=== PATIENT | female | born 1955 | race Hispanic/Latino ===

== ENCOUNTER 2019-03-30 11:41 | Inpatient (IN) | payer BC ==
[2019-03-30 12:23] LABS: #Eosinphils 0.1 thou/uL (0.0-0.7); #Lymphocytes 2.2 thou/uL (1.20-3.40); #Monocytes 0.5 thou/uL (0.11-0.59); #Neutrophils 4.4 thou/uL (1.40-6.50); %Basophils 0.2 % (0.0-1.0); %Eosinophils 1.6 % (0.0-10.0); %Lymphocytes 30.6 % (21.0-51.0); %Monocytes 6.7 % (0.0-10.0); Hemoglobin 14.2 g/dL (12.0-16.0); Mean Corpuscular HGB CONC 34.7 g/dL (32.0-36.0); Mean Corpuscular Hemoglobin 32.7 pg (27.0-31.0); Mean Corpuscular Volume 94.4 fL (78.0-98.0); Mean Platelet Volume 8.6 fL (7.4-10.4); Platelet Count 205 thou/uL (130-400); RBC Distribution Width 11.9 % (11.5-14.5); Red Blood Cell (RBC) Count 4.33 mill/uL (4.20-5.40); White Blood Cell (WBC) Count 7.2 thou/uL (4.8-10.8)
--- NOTE | 2019-03-30 12:35 | RAD ---
PORTABLE CHEST ONE VIEW: 03/30/2019 12:21 p.m. HISTORY: Chest pain. Shortness of breath. COMPARISON: 08/02/2013 FINDINGS: The heart size is normal. The aorta is tortuous. The lungs are well expanded without focal areas of consolidation, pneumothoraces, or pleural effusions. There are postop changes of right rotator cuff repair. IMPRESSION: No acute process. POS: [place]
[2019-03-30] MEDS ORDERED: Aspirin Chewable 81 MG TAB ONE (12:39)
[2019-03-30 12:45] LABS: ALT (SGPT) 21 U/L (8-55); AST (SGOT) 16 U/L (5-34); Alkaline Phosphatase 112 U/L (40-150); Anion Gap 11 mmol/L (10-20); BUN (Urea Nitrogen) 13 mg/dL (9.8-20.1); Bilirubin, Total 0.5 mg/dL (0.2-1.2); Calc. Creatinine Clearance 0 mL/min (70-130); Calcium 8.8 mg/dL (7.8-10.44); Carbon Dioxide 24 mmol/L (23-31); Chloride 108 mmol/L (98-107); Estimated GFR-MDRD Greater than 90; Globulin 2.5 g/dL (2.4-3.5); Glucose 117 mg/dL (80-115); Potassium 4.2 mmol/L (3.5-5.1); Protein, Total 6.5 g/dL (6.0-8.3); Sodium 139 mmol/L (136-145)
[2019-03-30] MEDS ORDERED: Acetaminophen 500 MG TAB ONE (13:05)
[2019-03-30] MEDS ORDERED: Nitroglycerin 2% Ointment 1 INCH/1 GM Packet ONE (13:05)
[2019-03-30] MEDS ORDERED: Morphine 4 MG/ML VIAL ONE (13:35)
[2019-03-30] MEDS ORDERED: Ondansetron PF 4 MG/2 ML Vial ONE (13:35)
[2019-03-30] MEDS ORDERED: Ondansetron ODT 4 MG TAB SL PRN (14:33)
[2019-03-30] MEDS ORDERED: Ondansetron PF 4 MG/2 ML Vial IVP PRN (14:33)
[2019-03-30] MEDS ORDERED: Acetaminophen 325 MG TAB PO PRN (14:33)
[2019-03-30 15:49] LABS: Troponin I 0.609 ng/mL (< 0.028)
[2019-03-30 16:31] VITALS: BMI 35.6
[2019-03-30] MEDS ORDERED: Bisacodyl 5 MG TAB PO PRN (17:09)
[2019-03-30] MEDS ORDERED: HYDROcodone/Acetaminophen 5/325 mg Tablet PO PRN (17:09)
[2019-03-30] MEDS ORDERED: Senokot S 8.6-50 MG TAB PO PRN (17:09)
[2019-03-30] MEDS ORDERED: Morphine 2 MG/ML SYRINGE IVP PRN (17:12)
--- NOTE | 2019-03-30 18:28 | HP ---
CHIEF COMPLAINT: Chest pain. HISTORY OF PRESENT ILLNESS: Ms. Sena is a very pleasant 64-year-old female with no known past medical history, presents with acute onset of chest pain. The patient states that this morning she started having left-sided midsternal crushing type chest pain, that did radiate up to the jaw. The patient had associated numbness and tingling in the left arm. The patient states that she did have some shortness of breath and there was a crushing sensation to the chest. The patient denies history of cardiac disease. The patient has never had a heart attack. The patient has never had cardiac catheterization. The patient says that she did have a stress test roughly 3 years ago and it was normal. The patient is otherwise healthy and takes no medications. The patient denies history of diabetes. The patient denies history of hypertension. The patient with initially normal troponin level, on serial troponin tests, found to be up-trending. Cardiology consultation requested for further recommendations. The patient admitted to medical unit with telemetry for further management. PAST MEDICAL HISTORY: No known past medical history. REVIEW OF SYSTEMS: A 10-point review of systems was performed and negative aside from what mentioned in history of present illness. MEDICATIONS: Aspirin 81 mg one tablet p.o. daily. ALLERGIES: NO KNOWN DRUG ALLERGIES. SOCIAL HISTORY: The patient denies tobacco, illicit drug use, or alcohol. She wishes to be a full code. PHYSICAL EXAMINATION: VITAL SIGNS: Temperature 98.1, pulse 63, blood pressure 120/62, respirations 18, and O2 saturation 98% on room air. GENERAL: The patient is alert and oriented, in no acute distress. She is resting in bed comfortably, breathing well on room air. HEENT: Head is normocephalic and atraumatic. Pupils are equally round and reactive to light and accommodation. Extraocular muscles intact. There are no exudates on the tonsils or erythema present. CHEST: S1 and S2 present. No appreciated murmurs, rubs, or gallops. LUNGS: Clear to auscultation bilaterally without wheezing, rales, or rhonchi. ABDOMEN: Soft, nontender, and nondistended without focal guarding or rigidity. BACK: Spine in good alignment with normal range of motion. EXTREMITIES: Lower extremities; no lower extremity edema. NEUROLOGIC: Cranial nerves 2 through 12 are grossly intact. Strength and sensation are symmetric and intact. SKIN: No rashes or lesions. PSYCHIATRIC: The patient is alert and oriented x3 with good insight into clinical condition. LABORATORY DATA: WBC 7.2, RBC 4.3, hemoglobin 14.2, hematocrit 40.8, and platelets 205. D-dimer less than 0.27. Chemistry; sodium 139, potassium 4.2, chloride 108, carbon dioxide 24, anion gap of 11, BUN 13, creatinine 0.63, estimated GFR greater than 90, glucose 117, and calcium 8.8. Total bilirubin 0.5, AST 16, ALT 21, and alkaline phosphatase 112. Troponin 0.609. Serum total protein 6.5 and albumin 4.0. RADIOGRAPHIC IMAGING: Chest x-ray: Please see full report for details. IMPRESSION: No acute process. ASSESSMENT AND PLAN: 1. [id number] myocardial infarction - the patient with up-trending cardiac enzymes. EKG does not demonstrate any acute ST-T segment abnormalities. Continue to trend troponin values. Morphine, oxygen, nitrates, and aspirin have all been ordered. Cardiology consultation requested, recommendations appreciated. 2. Elevated troponins, treatment as above. 3. Chest pain, treatment as above. 4. Elevated BMI. 5. Add hemoglobin A1c and lipid panel to screen for medical comorbidities. Job ID: [id number]
[2019-03-30 18:50] LABS: Hemoglobin A1c 5.3 % (4.0-6.0)
[2019-03-30 19:04] LABS: Cardiac Risk 3.8 (Less than 4.5)
[2019-03-30 19:10] LABS: Troponin I 1.276 ng/mL (< 0.028)
[2019-03-30] MEDS: Nitroglycerin 0.4 MG TAB (25 Tab Bottle) SL PRN ×3 (19:14→20:05)
--- NOTE | 2019-03-30 19:23 | PDOC.EVN ---
Event Note - Event Note Event Note: Second troponin positive at >1. Will add Daily ASA, add lovenox, B Selena ACEI and statin. Cardiology consult tomorrow.
[2019-03-30] MEDS: Famotidine 20 MG TAB PO SCH (19:31)
[2019-03-30] MEDS: Enoxaparin Sodium 80 MG/0.8 ML SYRINGE SC SCH (20:05)
[2019-03-30] MEDS: Metoprolol Tartrate 25 MG TAB PO SCH (20:42)
[2019-03-30] MEDS: Atorvastatin Calcium 20 MG TAB PO SCH (20:42)
[2019-03-30] MEDS: Nitroglycerin 2% Ointment 1 INCH/1 GM Packet TOP SCH (21:42)
[2019-03-31] MEDS ORDERED: Ondansetron PF 4 MG/2 ML Vial IVP PRN (01:45)
[2019-03-31 05:34] LABS: #Lymphocytes 1.7 thou/uL (1.20-3.40); #Monocytes 0.5 thou/uL (0.11-0.59); #Neutrophils 7.4 thou/uL (1.40-6.50); %Basophils 0.2 % (0.0-1.0); %Eosinophils 0.5 % (0.0-10.0); %Lymphocytes 17.9 % (21.0-51.0); %Neutrophils 76.5 % (42.0-75.0); Hemoglobin 13.6 g/dL (12.0-16.0); Mean Corpuscular HGB CONC 34.4 g/dL (32.0-36.0); Mean Corpuscular Hemoglobin 32.8 pg (27.0-31.0); Mean Corpuscular Volume 95.4 fL (78.0-98.0); Mean Platelet Volume 8.9 fL (7.4-10.4); Platelet Count 211 thou/uL (130-400); RBC Distribution Width 11.9 % (11.5-14.5); Red Blood Cell (RBC) Count 4.15 mill/uL (4.20-5.40); White Blood Cell (WBC) Count 9.7 thou/uL (4.8-10.8)
[2019-03-31 06:00] LABS: Anion Gap 11 mmol/L (10-20); BUN (Urea Nitrogen) 12 mg/dL (9.8-20.1); Calc. Creatinine Clearance 126 mL/min (70-130); Carbon Dioxide 24 mmol/L (23-31); Chloride 106 mmol/L (98-107); Estimated GFR-MDRD Greater than 90; Glucose 118 mg/dL (80-115); Sodium 137 mmol/L (136-145)
[2019-03-31] MEDS: Nitroglycerin 2% Ointment 1 INCH/1 GM Packet TOP SCH ×2 (06:06→13:45)
[2019-03-31] MEDS: Enoxaparin Sodium 80 MG/0.8 ML SYRINGE SC SCH (09:36)
[2019-03-31] MEDS: Metoprolol Tartrate 25 MG TAB PO SCH (09:37)
[2019-03-31] MEDS: Famotidine 20 MG TAB PO SCH ×2 (09:37→20:42)
[2019-03-31] MEDS: Aspirin 81 mg Enteric Coated Tablet PO SCH (09:37)
--- NOTE | 2019-03-31 12:06 | PDOC.HOSPP ---
- Subjective Subjective: Seen and examined. Did have some chest pain in the night, improved with current medications. No chest pain currently. Breathing well on room air. NPO pending cardiology input. - Objective Vital Signs & Weight: Vital Signs (12 hours) Temp Pulse Resp BP Pulse Ox 03/31/19 11:39 98 F 51 L 16 96/55 L 94 L 03/31/19 07:38 98.2 F 62 18 114/68 95 03/31/19 03:43 97.9 F 70 15 129/82 98 Weight Weight 189 lb 1.6 oz I&O: 03/30/19 03/31/19 04/01/19 06:59 06:59 06:59 Intake Total 563 Output Total 400 Balance 163 Result Diagrams: 03/31/19 05:16 03/31/19 05:16 ROS - Medication Medications: Active Medications Generic Name Dose Route Start Last Admin Trade Name Freq PRN Reason Stop Dose Admin Hydrocodone Bitart/Acetaminophen 1 tab 03/30/19 17:09 03/31/19 09:38 Brainard 5/325 PO 1 tab Q4H PRN Administration Moderate Pain (4-6) Aspirin 81 mg 03/31/19 09:00 03/31/19 09:37 Ecotrin PO 81 mg DAILY SARITA Administration Atorvastatin Calcium 20 mg 03/30/19 21:00 03/30/19 20:42 Lipitor PO 20 mg HS SARITA Administration Enoxaparin Sodium 80 mg 03/30/19 21:00 03/31/19 09:36 Lovenox SC Not Given 0900,2100 SARITA Famotidine 20 mg 03/30/19 21:00 03/31/19 09:37 Pepcid PO 20 mg BID SARITA Administration Morphine Sulfate 2 mg 03/30/19 17:12 03/30/19 20:37 Morphine IVP 2 mg Q4H PRN Administration Moderate to Severe Pain (6-10) Nitroglycerin 0.4 mg 03/30/19 17:12 03/30/19 20:05 Nitrostat SL 0.4 mg Q5MIN PRN Administration Chest Pain Nitroglycerin 0.5 inch 03/30/19 22:00 03/31/19 06:06 Nitro-Bid 2% Ointment TOP 0.5 inch Q8HR SARITA Administration - Exam NAD, awake alert Eye: PERRL Eye - other findings: EOMI ENT: moist mucosa Neck: supple, symmetric, no JVD Heart: RRR, no murmur, no gallops, no rubs Respiratory: CTAB, no wheezes, no rales, no ronchi, normal chest expansion Gastrointestinal: soft, non-tender, non-distended, normal bowel sounds, no guarding Extremities: no edema Skin: no lesions, no rashes Neurological: CN's grossly intact, no weakness, no focal deficits, no new deficit Musculoskeletal: normal strength, no muscle wasting Psychiatric: normal affect, A&O x 3 Hosp A/P - Plan Plan: NSTEMI - pending further eval by cardiology, may require cath for definitive diagnosis/ treatment Lovenox, ASA, morphine, nitroglycerine, statin Hold beta pal, will defer to cardiology Troponin 0.6->1.2 GI and DVT PPX
[2019-03-31] MEDS ORDERED: Communication Order-Pharmacy FS SCH (14:30)
[2019-03-31] MEDS ORDERED: Heparin 10,000 UNITS/1 ML VIAL ONE (14:35)
[2019-03-31] MEDS ORDERED: Verapamil 5 MG/2 ML VIAL ONE (14:35)
[2019-03-31] MEDS ORDERED: Lidocaine 1% (PF) 30 ML VIAL ONE (14:36)
[2019-03-31] MEDS ORDERED: Nitroglycerin 100MG/250ML BOT 250 ML ONE (14:36)
[2019-03-31] MEDS ORDERED: Midazolam HCl 2 mg/2 ml Vial ONE (15:46)
[2019-03-31] MEDS ORDERED: Sodium Chloride 0.9% 200 ML IV PRN (16:20)
[2019-03-31] MEDS ORDERED: Acetaminophen/Codeine 30-300mg Tablet PO PRN ×2 (16:20)
[2019-03-31] MEDS ORDERED: Nitroglycerin 0.4 MG TAB (25 Tab Bottle) SL PRN (16:20)
--- NOTE | 2019-03-31 19:16 | CON ---
DATE OF CONSULTATION: 03/31/2019 INDICATION FOR CONSULTATION: A 64-year-old female with a [id number] elevation myocardial infarction. HISTORY OF PRESENT ILLNESS: This is a very pleasant 64-year-old female, had onset of chest pain yesterday morning between around 8 o'clock or 9 o'clock in the morning, lasted for couple hours. She then presented to the emergency room. Her enzymes have continued to creep upward, troponin I. She has had her pain lasted almost 24 hours. It finally resolved this morning. She was given aspirin in the emergency room, and I believe also she has been given nitroglycerin. The pain did not completely resolve until now, but the enzymes still are positive and continued to be trending upward. At this time, she is pain free, but given the fact that her enzymes continued to increase, I advised her to undergo cardiac catheterization. Her EKG also has no acute changes. She denies any history of diabetes, hypertension, hypercholesterolemia, family history of heart disease, or tobacco abuse. However, she did have chest discomfort, and the enzymes are abnormal. She did have a stress test approximately 3 years ago for somewhat similar chest pain, but the workup at that time was unremarkable. PAST MEDICAL HISTORY: Please refer to the notes dictated by the nurse practitioner, Shadi Garrett. REVIEW OF SYSTEMS: Please refer to the notes dictated by the nurse practitioner, Shadi Garrett. MEDICATIONS: Please refer to the notes dictated by the nurse practitionerShadi. ALLERGIES: PLEASE REFER TO THE NOTES DICTATED BY THE NURSE PRACTITIONERSHADI. SOCIAL HISTORY: Please refer to the notes dictated by the nurse practitionerShadi. PHYSICAL EXAMINATION: GENERAL: A well-developed, well-nourished female, who is in no acute distress at this time. VITAL SIGNS: Blood pressure is 96/55, heart rate is in the 50s to 60s and shows a sinus rhythm, respiratory rate 16. She is afebrile. HEENT: Head to be normocephalic and atraumatic. Carotid pulses are present. There are no bruits. CHEST: Clear to auscultation without rales, rhonchi, or wheezing. CARDIOVASCULAR: Regular rate and rhythm. Normal S1 and S2. I cannot hear an S3 nor an S4. No other any significant murmurs, heaves, thrills, bruits, or rubs. ABDOMEN: Obesity with positive bowel sounds. No organomegaly or masses noted. Femoral pulses are present. EXTREMITIES: No clubbing, cyanosis, or edema. Pedal pulses are also present. NEUROLOGIC: The patient appears to be fully intact. There are no focal motor deficits noted. The patient is able to ambulate without difficulties. SKIN: Warm and dry. LABORATORY DATA: Please refer the notes dictated already. However, her chemistries, please note that the troponin I; on admission, it was less than 0.01, has increased up to 0.6, then to 1.27, and now is up to 2.99, compatible with a [id number] elevation myocardial infarction. I would advise her to undergo cardiac catheterization. I have discussed this with her as well as the family and explained the procedure, the risks to include bleeding, infection, possible myocardial infarction, CVA, renal insufficiency, allergic contrast reaction, the possibility of , and she understands and agrees to proceed. We will plan for cardiac catheterization today. The patient has been n.p.o. Job ID: [id number]
[2019-03-31] MEDS: Atorvastatin Calcium 20 MG TAB PO SCH (20:42)
[2019-04-01 05:42] LABS: #Eosinphils 0.1 thou/uL (0.0-0.7); #Lymphocytes 2.2 thou/uL (1.20-3.40); #Monocytes 0.5 thou/uL (0.11-0.59); #Neutrophils 4.6 thou/uL (1.40-6.50); %Basophils 0.1 % (0.0-1.0); %Eosinophils 1.6 % (0.0-10.0); %Lymphocytes 29.2 % (21.0-51.0); Hemoglobin 13.6 g/dL (12.0-16.0); Mean Corpuscular HGB CONC 34.8 g/dL (32.0-36.0); Mean Corpuscular Hemoglobin 33.1 pg (27.0-31.0); Mean Corpuscular Volume 95.1 fL (78.0-98.0); Mean Platelet Volume 8.8 fL (7.4-10.4); Platelet Count 191 thou/uL (130-400); RBC Distribution Width 11.8 % (11.5-14.5); Red Blood Cell (RBC) Count 4.11 mill/uL (4.20-5.40); White Blood Cell (WBC) Count 7.4 thou/uL (4.8-10.8)
[2019-04-01 06:07] LABS: Anion Gap 10 mmol/L (10-20); BUN (Urea Nitrogen) 12 mg/dL (9.8-20.1); Calc. Creatinine Clearance 124 mL/min (70-130); Calcium 8.7 mg/dL (7.8-10.44); Carbon Dioxide 26 mmol/L (23-31); Chloride 107 mmol/L (98-107); Estimated GFR-MDRD Greater than 90; Glucose 98 mg/dL (80-115); Sodium 139 mmol/L (136-145)
--- NOTE | 2019-04-01 08:08 | CON ---
DATE OF CONSULTATION: PRIMARY CARE PHYSICIAN: Dr. Cuellar. PRIMARY CEMENT GUN OPERATOR: PRIMARY HAT TRIMMER: Dr. Esther Madsen. REASON FOR CARDIOLOGY CONSULT: Chest pain and elevated troponin. HISTORY OF PRESENT ILLNESS: Ms. Sena is a 64-year-old female with no significant past medical history. The patient started having the tightness to the left upper chest, which radiated to the left side of jaw and the patient also has started having numbness, tingling to the left shoulder, and shortness of breath since Sunday morning around 8 o'clock. Her blood pressure was being 160 to 170 on the systolic side, and the patient's symptoms continue until last night after the patient was transferred to observation unit. At this moment, the patient denied any chest pain, tightness or discomfort in her chest, shortness of breath, dizziness, lightheadedness, or any other cardiac complaints. 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 She had intermittent shortness of breath with walking to build into building. The patient had a stress test done in March 2013. No reversible ischemia with EF of 67%. The patient had echocardiogram was done in March 2013 with EF 65%, mild pulmonary regurgitation, mild mitral valve regurgitation, and a very small pericardial effusion, which was normal limit and no evidence of tamponade. Abdomen ultrasound was done in March 2013 showing increased hepatic echogenicity may reflect fatty infiltration. PAST MEDICAL HISTORY: No known. PAST SURGERY HISTORY: Tubal ligation. ALLERGIES: NO KNOWN DRUG ALLERGIES. MEDICATION: Aspirin 81 mg once a day. FAMILY HISTORY: The patient's mother has a history of breast cancer. The patient's father has a history of diabetes. The patient's siblings have medical history of diabetes. SOCIAL HISTORY: She is . She has 6 children. One child due to the renal function. However, is not secondary to congenital disease. She will continue working as a full-time as a maintenance mgr. She drinks one beer about every 2 weeks. She denied tobacco abuse. She drinks 1 cup of coffee a day. She does not exercise. REVIEW OF SYSTEMS: Twelve-point review of systems negative unless otherwise mentioned in the HPI. PHYSICAL EXAMINATION: VITAL SIGNS: Blood pressure 96/55, temperature 98, pulse is 51 to 70, respiratory rate 16, and O2 saturation 95% on room air. GENERAL: The patient is alert and oriented x4, not in acute distress. HEENT: Normocephalic and atraumatic. Eyes; extraocular muscle movement intact. ENT and mouth; oral and nasal mucosa moist without lesion. NECK: Supple. Normal range of motion. No JVD. RESPIRATORY: Clear to auscultate bilaterally. No wheezing or rhonchi noted. CARDIOVASCULAR: Regular rate and rhythm. Normal S1 and S2. There is no S3 or S4. No significant murmur, hives, or thrill noted. 2+ pulses in the bilateral upper and lower extremities. No edema in the lower extremities. ABDOMEN: Soft and nontender. No mass to palpitate. Bowel sounds are present. MUSCULOSKELETAL: The patient is able to move all extremities without difficulty. No claudication. SKIN: Warm and dry. No lesion, rash, or erythema noticed. PSYCHIATRIC: The patient's mood is appropriate. NEUROLOGIC: The patient is alert and oriented x4. Nonfocal. LABORATORY DATA: WBC 9.7, hemoglobin 13.6, hematocrit 39.6, platelet 211. D-dimer is 0.27. Sodium 137, potassium 4.0, BUN 12, creatinine 0.62, glucose 180. Hemoglobin A1c 5.3. Calcium 9.0. AST 16, ALT 21. Troponin less than 0.028, second one 0.609, 1.276, and 2.99. Total cholesterol 193, triglycerides 88, HDL 51, and LDL 124. The patient's chest x-ray shows no acute process. The patient's 12-lead EKG at the ER shows sinus rhythm with heart rate of 66, no ST-segment change or T-wave inversion. ASSESSMENT AND PLAN: Non-ST elevation myocardial infarction. The patient's troponin is 2.99. She is on aspirin, Lipitor, metoprolol 12.5 mg twice a day, and nitro paste. At this moment, the patient is n.p.o. due to the elevation of troponin; although, the patient does not have any other cardiac complaints. The patient might undergo cardiac catheterization by Dr. Madsen. I discussed with Dr. Madsen about the procedure. Thank you very much for Cardiology Service to participate in care of this patient. We will follow along the patient's care team and make further recommendations as appropriate. Job ID: [id number]
[2019-04-01 08:30] VITALS: BP 140/77; TEMP 98.3
[2019-04-01] MEDS: Aspirin 81 mg Enteric Coated Tablet PO SCH (08:56)
[2019-04-01] MEDS: Famotidine 20 MG TAB PO SCH (08:57)
--- NOTE | 2019-04-01 10:29 | PDOC.CTH ---
Cardiology Progress Note - Subjective The pt seen and examined. No overnight events. No cardiac complaints. - Objective Vital Signs Temp Pulse Resp BP Pulse Ox 04/01/19 07:56 98.3 F 72 16 140/77 95 04/01/19 04:00 98.5 F 69 20 112/65 94 L 04/01/19 02:09 98 Weight 189 lb 1.6 oz 03/31/19 04/01/19 04/02/19 06:59 06:59 06:59 Intake Total 563 300 240 Output Total 400 Balance 163 300 240 - Physical Examination General/Neuro: alert & oriented x3 Neck: no JVD present Lungs: CTA Heart: RRR Abdomen: soft Extremities: other: (No edema) - Telemetry Telemetry Rhythm: SR - Labs Result Diagrams: 04/01/19 05:30 04/01/19 05:30 Troponin/CKMB Troponin I 2.990 ng/mL (< 0.028) H* 03/31/19 05:15 - Assessment/Plan 1. NSTEMI with S/p LHC on 03/31/2019 with normal coronary arteries - cont ASA 81mg qd 3. HLD - tolerate Lipitor 3. Obese - the pt is willing to start exercise. MAR reviewed * S/p LHC on 03/31/2019 with normal coronary arteries * Echo on 03/31/2019 with EF 60-65% and mild MR and TR * From Cardiac standpoint, the pt is stable to d/c home. The pt will f/u with Dr Madsen' office within 1-2 wks. Review of Systems - Review of Systems Constitutional: reports: no symptoms reported EENTM: reports: no symptoms reported Respiratory: reports: no symptoms reported Cardiac (ROS): reports: no symptoms reported ABD/GI: reports: no symptoms reported : reports: no symptoms reported
--- NOTE | 2019-04-02 03:08 | DIS ---
DATE OF ADMISSION: 03/30/2019 DATE OF DISCHARGE: 04/01/2019 REASON FOR HOSPITALIZATION: Chest pain. SIGNIFICANT FINDINGS: The patient with up trending cardiac enzymes concerning for acute myocardial infarction. PROCEDURES PERFORMED/TREATMENTS RENDERED: The patient went for cardiac catheterization on 03/31/2019-please see full cath report for details. CONDITION ON DISCHARGE: Stable. SPECIFIC INSTRUCTIONS FOR THE PATIENT/FAMILY: 1. Follow up with primary care physician in the next 5 to 7 days. 2. Follow up with Cardiology in the next 1 to 2 weeks. 3. Take all new medications as directed, to be re-evaluated by primary care physician and Cardiology in the outpatient setting. 4. The patient is recommended to return to acute care hospital immediately if signs or symptoms return, worsen, or any other new symptoms occur. HOSPITAL COURSE: Ms. Sena is a very pleasant 64-year-old female who presented to [facility] on 03/30/2019, with chest pain. The patient had up trending cardiac enzymes and a Cardiology consultation was requested, please see full consultation and progress notes for details. With up trending cardiac enzymes, the patient was started on morphine, oxygen, nitrates, aspirin, and Lovenox therapy. The patient was recommended by Cardiology to go to the cardiac catheterization lab. The patient went to cardiac catheterization lab on 03/31/2019, please see full cath report for details. The patient tolerated cardiac catheterization without intraoperative complications. There was no coronary artery disease identified. The patient likely was type 2 demand ischemia. The patient was monitored overnight and had repeat of renal function. The patient's renal function remains normal and there was no contrast-induced nephropathy. The patient recommended safe for discharge by Cardiology with close followup in the outpatient setting. The patient is recommended to take all medications as outlined. The patient is recommended to follow up with primary care physician in the next 5 to 7 days. The patient is recommended to follow up with Cardiology in the next 1 to 2 weeks. The patient is recommended to return to acute care hospital immediately if signs or symptoms return, worsen, or any other new symptoms occur. Greater than 33 minutes spent coordinating and planning discharge process with this patient. Job ID: [id number]
== END 2019-04-01 11:45 | disposition home or self-care (01) | DRG 282 ==
LOC: ERS 11:41 → OBSVTOIN 15:44 → 2SW 15:44
PROVIDERS: ADMIT Internal Medicine; ATTEND Internal Medicine
PROC: 4A023N7 Measurement of Cardiac Sampling and Pressure, Left Heart, Percutaneous Approach (ICD-10-PCS; principal; 2019-03-31)
PROC: B2151ZZ Fluoroscopy of Left Heart using Low Osmolar Contrast (ICD-10-PCS; 2019-03-31)
PROC: B2111ZZ Fluoroscopy of Multiple Coronary Arteries using Low Osmolar Contrast (ICD-10-PCS; 2019-03-31)
DX: I21.4 Non-ST elevation (NSTEMI) myocardial infarction (principal); E78.5 Hyperlipidemia, unspecified; Z98.51 Tubal ligation status; E66.9 Obesity, unspecified; I08.1 Rheumatic disorders of both mitral and tricuspid valves; Z68.35 Body mass index [BMI] 35.0-35.9, adult
CPT/HCPCS: 36415; 71045; 80048; 80053; 80061; 83036; 84484; 85025; 85379; 93005; 93010; 93306; 93458; 93798; 94760; 96374; 96375; 99152; C1769; J1644; J1650; J2001; J2250; J2270; J2405

== ENCOUNTER 2020-01-11 11:40 | Emergency (ER) | payer BC, OTHER ==
[2020-01-11 17:23] LABS: SARS-CoV-2 MS2 Positive; SARS-CoV-2 N Gene Negative; SARS-CoV-2 S Gene Negative; SARS-CoV-2 orf1ab Negative
== END 2020-01-11 12:01 | disposition home or self-care (01) ==
LOC: ERS 11:40
DX: Z20.828 Contact with and (suspected) exposure to other viral communicable diseases (principal)
CPT/HCPCS: 87635; 99283; U0003